=== PATIENT | male | born 2005 | race Two or more races ===

== ENCOUNTER 2024-11-27 17:55 | Emergency (ER) | payer BC, OTHER ==
[~2024-11-27] VITALS: Ht 177.8 cm; Wt 74.6 kg
[2024-11-27] MEDS ORDERED: ZOFR4T PO (19:13)
[2024-11-27] MEDS ORDERED: DICY10CA PO (19:13)
[2024-11-27] MEDS ORDERED: FAMO-161 PO (19:13)
--- NOTE | 2024-11-27 19:13 | ED.PDOC ---
History of Present Illness HPI Comments 20-year-old male brought in by brother evaluation of left upper quadrant discomfort, nausea and vomiting. Patient states that he was having epigastric and left upper quadrant discomfort starting 3 days ago. He states 4 days ago he was at an event where he drank more alcohol than normal. The following day he developed epigastric and left upper quadrant discomfort, nausea and vomiting. He denies diarrhea, fever or urinary symptoms. He states the symptoms have improved, however while he was on his way to work last night, he had an episode of nausea, tingling lips, his arms felt heavy, his hands began to cramp, and he felt short of breath. He states at that point he could not move his body. He pulled over and called his friend. He remembers the entire incident and denies losing consciousness. He was concerned that he may have had a seizure or stroke. He states his symptoms resolved after a few minutes, and he was able to drive home. He did not go to work that evening. Currently he denies any abdominal pain or vomiting. He states he has tolerated p.o. fluids since the last episode of vomiting. Chief Complaint: Abdominal Pain Time Seen by MD: 18:41 Primary Care Provider: ? Allergies: Coded Allergies: NO KNOWN ALLERGIES (Unverified , 11/27/24) Home Meds Active Scripts Dicyclomine Hcl (BENTYL CAPSULE) 10 Mg Cp, 2 CAP PO Q6HP PRN, #30 CAP 11 Refills prn abdominal pain Prov:IZABEL CLARK MD 11/27/24 Famotidine (Pepcid AC) 20 Mg Tab, 20 MG PO BID PRN, #30 TAB prn abdominal pain/nausea Prov:IZABEL CLARK MD 11/27/24 Ondansetron Odt 4MG Tab (ZOFRAN PO) 4 Mg Tb, 4 MG PO TID PRN, #30 TAB prn nausea/vomiting ODT TAB-DISSOLVE IN MOUTH, THEN SWALLOW Prov:IZABEL CLARK MD 11/27/24 Mode of Arrival: Ambulatory Past Medical History PAST MEDICAL HISTORY: Denies Surgical History: Denies all surgeries Family History Family History: Reviewed,noncontributory to illness Social History Smoker: Non-Smoker Alcohol: Occasionally Drugs: Denies Drug Use Lives In: Home All Other Systems: Reviewed and Negative (Comprehensive systems review obtained and negative except for what is stated in the HPI.) Physical Exam General Appearance: No Apparent Distress HEENT: Other (Pupils symmetric, extraocular movements intact, moist mucous memb ranes, no facial asymmetry) Neck: Full Range of Motion, Normal Inspection Respiratory: Lungs Clear, No Accessory Muscle Use, No Respiratory Distress, Normal Breath Sounds Cardiovascular: No Edema, No JVD, Regular Rate/Rhythm Breast Exam: Deferred Gastrointestinal: Non Tender, Soft Genitalia: Deferred Pelvic: Deferred Rectal: Deferred Extremities: Normal inspection, Normal range of motion, Non-tender, No pedal edema Neurologic: Alert (Oriented x4), Normal Affect, Normal Mood, Other (Ambulatory without difficulty. No gross focal deficit.) Cerebellar Function: NOT DONE Reflexes: NOT DONE Skin: Dry, Normal Color, Warm Lymphatic: NOT DONE Was a procedure done? Was a procedure done?: No Differential Dx Considerations may include: Gastroenteritis, gastritis, pancreatitis, electrolyte imbalance, drug/alcohol intoxication, anxiety/panic attack, among others. X-Ray, Labs, Meds, VS Vital Signs Date Time Temp Pulse Resp B/P (MAP) Pulse Ox O2 Delivery O2 Flow Rate FiO2 11/27/24 19:32 85 16 98 Room Air 11/27/24 19:32 99.0 85 16 118/82 (94) 98 99.0 11/27/24 18:06 99.0 85 16 118/82 (94) 98 X-Ray, Labs, Meds, VS Comment 20-year-old male with no significant past medical history brought in by brother for evaluation of epigastric discomfort, nausea and vomiting which has resolved. Patient expressed concern for an episode of tingling lips, heavy arms, hand cramping and shortness a breath which also has resolved. Vitals unremarkable Exam unremarkable. No abdominal tenderness. No focal neurologic deficit. Rhythm strip independently interpreted by me: Sinus rhythm, rate 85, no ectopy. I offered to order blood work to check electrolytes, order IV fluids and antiemetics/acid reducers, however patient stated he was more concerned that he missed work last night and does not feel well enough to go to work today. He r equested a work excuse and declined any blood work or IV medications. Patient is well-appearing with stable vitals. Exam is unremarkable, and he states symptoms are improving. I am comfortable discharging him with a work excuse and a prescription for antiemetics, acid reducers and pain medication. Patient was advised regarding my impression, treatment plan and follow-up recommendations. Specifically to follow-up with his primary physician within the next 2 days, and to return to ER for persistent or worsening symptoms. He expressed understanding and agreed. Rx Pepcid, Trent Bentyl Time of 1ST Reevaluation: 19:07 Reevaluation 1ST: Unchanged Patient Education/Counseling: Diagnosis, Treatment, Need For Follow Up Family Education/Counseling: Diagnosis, Treatment, Need For Follow Up Departure 1 Departure Time of Disposition: 19:08 Impression: Primary Impression: Vomiting Qualified Codes: R11.2 - Nausea with vomiting, unspecified Additional Impression: Panic attack Disposition: HOME / SELF CARE / HOMELESS Condition: Stable Additional Instructions: Follow-up with your primary doctor in 1-2 days. I have prescribed medication for nausea, vomiting and abdominal pain. Return to ER for persistent or worsening symptoms. e-Prescriptions Dicyclomine Hcl (BENTYL CAPSULE) 10 Mg Cp 2 CAP PO Q6HP PRN, #30 CAP 11 Refills prn abdominal pain Prov: IZABEL CLARK MD 11/27/24 Famotidine (Pepcid AC) 20 Mg Tab 20 MG PO BID PRN, #30 TAB prn abdominal pain/nausea Prov: IZABEL CLARK MD 11/27/24 Ondansetron Odt 4MG Tab (ZOFRAN PO) 4 Mg Tb 4 MG PO TID PRN, #30 TAB prn nausea/vomiting ODT TAB-DISSOLVE IN MOUTH, THEN SWALLOW Prov: IZABEL CLARK MD 11/27/24 Discharged With: Relative (Sibling) Critical Care Note Critical Care Time?: No Stability Stability form required: No Heart Score Heart Score: Heart Score Response (Comments) Value History N/A 0 EKG N/A 0 Age N/A 0 Risk Factors N/A 0 Troponin N/A 0 Total 0 IZABEL CLARK MD Nov 27, 2024 19:13
[2024-11-27 19:32] VITALS: BP 118/82; PULSE 85; RESP 16; TEMP 99; O2SAT 98
== END 2024-11-27 19:35 | disposition home or self-care (01) ==
LOC: EDBD 17:55 → ER 17:55
DX: F41.0 Panic disorder [episodic paroxysmal anxiety] (principal); R11.2 Nausea with vomiting, unspecified; R10.31 Right lower quadrant pain; Z79.899 Other long term (current) drug therapy